=== PATIENT | female | born 1940 | race Caucasian/White ===

== ENCOUNTER 2018-09-03 05:31 | Inpatient (IN) | payer OTHER, MEDICARE ==
[2018-08-26 09:17] LABS: HEMOGLOBIN 13.7 gm/dL (12.0-15.0); MCHC 33.3 g/dL (28.0-37.0); MCV 87.3 fL (80.0-100.0); RBC 4.7 mil/uL (4.20-5.00); RDW 14.2 % (10.5-14.5); URINE BILIRUBIN NEGATIVE (Negative); URINE BLOOD NEGATIVE (Negative); URINE CLARITY CLOUDY; URINE COLOR YELLOW; URINE GLUCOSE-RANDOM* NEGATIVE (Negative); URINE KETONES NEGATIVE (Negative); URINE NITRITE-REFLEX NEGATIVE (Negative); URINE PROTEIN (DIPSTICK) NEGATIVE (Negative); URINE SPECIFIC GRAVITY 1.015 (1.005-1.035); URINE UROBILINOGEN 0.2 E.U./dl (0.2-1.0); WBC 6.6 thou/uL (4.0-11.0)
[2018-08-26 09:26] LABS: URINE LEUKOCYTES-REFLEX 3+ (Negative)
[2018-08-26 09:27] LABS: ALBUMIN 3.9 g/dL (3.4-5.0); CALCIUM 9.7 mg/dL (8.5-10.1); CREATININE 0.8 mg/dL (0.6-1.0); POTASSIUM 4.1 mmol/L (3.5-5.1)
[2018-08-26 09:30] LABS: CASTS None Seen /LPF (None Seen); CRYSTALS None Seen /LPF (None Seen); PROTIME 9.8 Seconds (9.3-11.4); SQUAMOUS 0-3 Few /LPF (0-3); URINE WBC-REFLEX >25 Many /HPF (0-5)
[2018-08-26 09:31] LABS: URINE RBC None Seen /HPF (0-2)
--- NOTE | 2018-08-27 13:55 | EKG ---
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: [facility] : 1940 Requested By: Juan Josue Order Number: [id number] MD: Eze Carreno Measurements Intervals [place] Rate: 61 P: 23 ND: 161 QRS: -19 QRSD: 83 T: 40 QT: 393 QTc: 396 Interpretive Statements Sinus rhythm Borderline left axis deviation No previous ECG available for comparison Electronically Signed On 08-27-2018 13:55:32 CDT by Eze Carreno [email or web address] ��������������������������������������������� <ELECTRONICALLY SIGNED> ���������������������������������������� By: Eze Carreno MD ��������������������������������������������� 08/27/18 1355 0916 5 Eze Carreno MD /MEHUL
[~2018-09-03] VITALS: Ht 157.5 cm; Wt 73.0 kg
[2018-09-03] VITALS (8 sets, daily range): BP systolic 96–161; BP diastolic 51–75
[~2018-09-03 05:31] MED LIST: APAP500 PO; ASPIRIN81 M2 PO; CALCIUM WITH M1 EACH PO; CELEBREX 200 M200 MG PO; CHLORTHALIDONE25 MG PO; COLACE100 MG PO; COZAAR100 MG PO; DIFLUCAN200 MG; IBUPROFEN 600600 M1 PO; LEVOTHYROXIN0.025 MG PO; LEVOTHYROXIN0.075 MG PO; MEDROL4 MG; NORCO 5-325 TA1 EACH PO; NORVASC5 M1 PO; PERCOCET PO; POTASSIUM20 PO; PREDNISONE 10 M10 MG; ROBAXIN 750 MG750 M1 PO; STOOL SOFTENER100 M1 PO; SYNTHROID75 MCG PO; TRAMADOL 50 MG50 MG PO; TURMERIC500 M2 PO; TYLENOL EXTRA500 MG PO; TYLENOL325 MG PO; VITAMIN D2000 UNI1 PO; VITAMINC500 PO; ZOFRAN ODT8 MG PO
[2018-09-03 07:33] LABS: URINE BILIRUBIN NEGATIVE (Negative); URINE BLOOD NEGATIVE (Negative); URINE CLARITY CLEAR; URINE COLOR YELLOW; URINE GLUCOSE-RANDOM* NEGATIVE (Negative); URINE KETONES NEGATIVE (Negative); URINE NITRITE-REFLEX NEGATIVE (Negative); URINE PROTEIN (DIPSTICK) NEGATIVE (Negative); URINE UROBILINOGEN 0.2 E.U./dl (0.2-1.0)
[2018-09-03 07:34] LABS: URINE LEUKOCYTES-REFLEX 2+ (Negative)
[2018-09-03 07:47] LABS: BACTERIA-REFLEX 1-9 Few /HPF (None Seen); CASTS None Seen /LPF (None Seen); CRYSTALS None Seen /LPF (None Seen); SQUAMOUS 4-10 Moderate /LPF (0-3); URINE RBC None Seen /HPF (0-2); URINE WBC-REFLEX 6-15 Few /HPF (0-5)
--- NOTE | 2018-09-03 15:52 | NUR ---
PT ADMITTED RELATED TO RIGHT TKR. CM REVIEWED CHART AND SPOKE WITH CARE TEAM. CM MET WITH PT AT BEDSIDE THIS DAY. PT IS A&O X4. CM ROLE INTRODUCED. PT INDICATED SHE LIVES ALONE IN A HOUSE WITH 2 STEPS TO ENTER AND NO STEPS INSIDE. PT INDICATED SHE HAD USED A FWW AT NIGHT TO ASSIST WITH MOBILITY. 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 PT INDICATED THAT SHE THINKS THAT SHE MIGHT BE ESTABLISHED WITH [facility] AND THEN OP PT UPON DC. PT INDICATED SHE ANTICPATES DISCHARGING HOME SUNDAY MORNING. CM TO FOLLOW INDICATED WITH DC PLANNING.
--- NOTE | 2018-09-03 17:08 | NUR ---
ASSUMED CARE AT 1300, SHIFT ASSESSMENT DONE, MEDS GIVEN, VSS. ON CAPNOGRAPHY MONITOR, RESPIRATIONS DROPPING BELOW [address] TIME[address] ROJAS INDICATED TO OFFER 1 ROUND OF BREATHING TREATMENT AND IF THAT DOES NOT HELP, CALL THE HOSPITALIST. REPORTED PAIN, PRN PAIN MEDS GIVEN. BILATERAL SCDs/ MICHAELA HOSE IN PLACE. ON REGUALR DIET, TOLERATING WELL. WILL CONTINUE TO ASSESS AND ASSIST WITH ADLs NEEDED.
--- NOTE | 2018-09-03 18:45 | NUR ---
PATIENT'S RESPIRATION HAS BEEN BETWEEN 8-10, BP 100/51, SATURATION IS FINE. READJUSTED THE PULSE-OX PROBE. ASKED FOR PAIN MED, BECAUASE OF LOW BP, IV MEDS HELD AT THIS TIME. GAVE TYLENOL, RATING PAIN AT 6/10 WILL CONTINUE TO ASSESS AND ASSIST WITH ADLs NEEDED.
[2018-09-04 00:35] VITALS: BP 92/53
[2018-09-04 05:18] VITALS: BP 92/51
[2018-09-04 05:32] LABS: HEMATOCRIT 32.1 % (37.0-47.0); HEMOGLOBIN 10.6 gm/dL (12.0-15.0); MCHC 33.1 g/dL (28.0-37.0); MCV 87.4 fL (80.0-100.0); RBC 3.67 mil/uL (4.20-5.00); RDW 14.3 % (10.5-14.5); WBC 17.9 thou/uL (4.0-11.0)
[2018-09-04 05:42] LABS: CALCIUM 8.1 mg/dL (8.5-10.1); CREATININE 0.8 mg/dL (0.6-1.0); POTASSIUM 3.8 mmol/L (3.5-5.1)
--- NOTE | 2018-09-04 06:23 | O ---
[address] [address] OPERATIVE REPORT Name: CLARE OLIVO Room #: 418-P [facility] IN M.R.#: [id number] Admission: 09/03/18 ������������������ Attend Phys: Juan Josue MD Discharge: ������������������ Date of : 42 Report #: [id number] THIS REPORT FOR: //name// CC: Jaya Josue DATE OF SERVICE: 09/03/2018 SERVICE: Orthopedics. FACILITY: [facility]. SURGEON: Juan Josue M.D. SHEET ROCK FINISHER: Kimberley Sepulveda NP. INDICATION FOR SHEET ROCK FINISHER: Extremity positioning, retracting, assisted with the reconstruction. PREOPERATIVE DIAGNOSES: 1. End-stage valgus type osteoarthritis, right knee. 2. Right knee pain. POSTOPERATIVE DIAGNOSES: 1. End-stage valgus type osteoarthritis, right knee. 2. Right knee pain. PROCEDURES: 1. Right total knee arthroplasty. 2. Computer navigated robotic assistance. ANESTHESIA: General with regional. COMPLICATIONS: None. DRAINS: None. ESTIMATED BLOOD LOSS: 50 mL. FINDINGS: Caldera and Nephew Legion size 5 narrow femur with size 3 tibia and 29 mm patellar inset button with an 11 mm constrained poly insert. HISTORY AND INDICATIONS: The patient is a 78-year-old female with history of advanced right knee osteoarthritis that had failed all conservative measures including rest, activity modifications, physical therapy, oral medications and injected medications. She had severe osteoarthritis with valgus type deformity [address] [address] OPERATIVE REPORT Name: CLARE OLIVO Room #: 418-P [facility] IN [facility]#: [id number] Admission: 09/03/18 ������������������ Attend Phys: Juan Josue MD Discharge: ������������������ Date of : 41 Report #: [id number] with [id number] changes, sclerosis and osteophytes. She was then indicated for surgical management after she wished to proceed with arthroplasty. Risks, benefits, alternatives and indication of surgery discussed with her in detail. Risks include but not limited to pain, bleeding, infection, injury to nerves or blood vessels, persistent pain despite surgical intervention, fracture, stiffness, need for further surgery as well as complications related to anesthesia such as stroke, heart attack, pulmonary complications, thromboembolic disease and . Despite these risks and wished to proceed. PROCEDURE IN DETAIL: After her right lower extremity was correctly identified, the patient underwent placement of a single shot regional nerve block. She was then taken to the Operating Room where general anesthesia was induced without complication. She was padded appropriately. Prophylactic antibiotics were administered at appropriate time. Tourniquet was applied to the right leg. Right lower extremity was then prepped and draped in standard sterile fashion. Time-out procedure was performed. Esmarch was used to exsanguinate. Tourniquet was inflated to 250 mmHg. Total tourniquet time was 97 minutes. A standard anterior approach was made to the knee with full thickness skin flaps developed and then a medial parapatellar arthrotomy was developed. The osteophytes were removed. The retropatellar fat pad was removed and then the menisci were excised. She had minimal lateral meniscal tissue due to degeneration. The cruciates were excised after the osteophytes were removed from the notch with an osteotome allowing access to the notch. The Caldera and Nephew Navio system was then used to map out the anatomy and established the patient's baseline range of motion, alignment and flexion and extension gap balancing. She has significant amount of valgus, baseline of approximately 60 degrees with flexion contracture as well as some ligamentous pathology associated. We plan for appropriate corrections with a goal of realigning her extremity and restoring full range of motion built into the reconstruction plan. The emmett was then used to prepare the bone starting with the femur first and then the 4-in-1 cutting block was used to prepare the femur and tibia was then prepared using navigation and then a tibial cut was made after exposure had been completed. The trials were placed and the alignment was appropriate. We did add an additional degree of external rotation in order to accommodate her patellar tracking as well as her flexion valgus deformity. With the trials in place and prepared the notch and then prepared the patella because of the severity of her deformity. I did trial twice first and finding that there was some additional osteophytes posteriorly and extending into the notch that we were interfering with the assessment. I removed the trials, resected the additional osteophytes, replaced the trials and assessed the balancing. After final position was found to be appropriate, the trials were removed. Again, the trials were removed after removal of the posterior osteophytes. The first 30 mL of a total of 120 mL of local anesthetic cocktail was infiltrated into the soft tissue and capsule posteriorly for postoperative analgesia and then the bone was prepared for cementation. The tibial component, which had been fixed based on the trial position was then placed and cemented into position. The femoral component was cemented. The [address] [address] OPERATIVE REPORT Name: CLARE OLIVO Room #: 418-P [facility] IN [place]#: [id number] Admission: 09/03/18 ������������������ Attend Phys: Juan Josue MD Discharge: ������������������ Date of : 42 Report #: [id number] excess cement was resected and the knee was placed into extension with the 11 mm constrained liner and then, the patellar component was cemented into place in the appropriate position. The cement was allowed to cure. Tourniquet was let down. Hemostasis was achieved. The remaining 90 mL of local anesthetic was then infiltrated into the soft tissues to complete the periarticular injection and then the knee was assessed for stability and we selected the 11 mm constrained liner to provide a good stability. The arthrotomy was then closed with 0 Vicryl suture in [id number]-[id number] fashion and the skin layer was then closed with 2-0 Vicryl followed by running subcuticular 3-0 Monocryl and Dermabond. A negative pressure dressing was then applied followed by compression stocking and a PolarCare device. The patient was awakened from anesthesia and taken to Recovery Room in stable condition. There were no complications and all counts were recorded as correct. ��������������������������������������������� <ELECTRONICALLY SIGNED> ���������������������������������������� By: Juan Josue MD ��������������������������������������������� 09/04/18 0623 2256 [id number] Juan Josue MD /nt
--- NOTE | 2018-09-04 07:28 | NUR ---
ASSUMED PT CARE 1899. PT ALERT AND ORIENTED. BLOOD PRESSURES CONSISTENTLY LOW, PT COMPLAINS OF DIZZINESS AND LIGHTHEDEDNESS. PT UP TO BED SIDFE COMMODE X1, DIZZY MALIK AND VOMIT X1. PT REPORTS PAIN, SEE EMAR. RESPIRATIONS OKAY, O2 SAT GOOD. PT UNABLE TO URINATE AT 0000. BLADDERSCAN PERFORMED AND WARE INSERTED. REPORT GIVEN TO AM NURSE.
--- NOTE | 2018-09-04 13:45 | NUR ---
DCP WAS NOTIFIED THIS AM FROM MODESTA AT [facility] THAT DR. ROJAS'S OFFICE ARRANGED FOR PT. TO HAVE HH AT DISCHARGE. MODESTA MET WITH PT. THIS AM AND DID BEDSIDE EVAL. ADOLFO FAXED REFERRAL TO [facility] AND WAS RECEIVED. ANTICIPATE DC SUNDAY. DCP TO FOLLOW.
--- NOTE | 2018-09-04 17:05 | NUR ---
Assumed pt care at 7am.Pt in and out of bed for activitity with therapy. Assessment completed.vss. but low bp noted.Bp meds on hold till better reading.Pt tolerated meds and diet.Dr Hoffman here early this shift,order noted.Pt wanted to know if bp reading was better than earlier .Bp was 98/61 with pulse 55.Gay cath dc'd per protocol.Report off to [facility] in senior suites.Pt left per wc accompanied by paper machine tender at 1710.
[2018-09-04 17:30] VITALS: BP 96/56
--- NOTE | 2018-09-04 17:42 | NUR ---
PATIENT TRANSFERRED TO SICU ROOM #223 FROM ROOM #418. PATIENT SETTLED AND VS TAKEN.
[2018-09-04 21:35] VITALS: BP 144/70
--- NOTE | 2018-09-05 05:45 | NUR ---
PATIENT ALERT AND ORIENTED X4. DRESSING ON R KNEE D/T. C/O PAIN IN THIGH AREA ABOVE KNEE. POLAR ICE ON KNEE. HAD NOT VOIDED BY 0120. CATH PLACED 0145 WITH NO TROUBLE. PATIENT TOLERATED WELL. RECIEVED AROUND 800ML IN THE FIRST 15 MIN. C/O NAUSEA. MED GIVEN. C/O NAUSEA ASAIN, WITH VOMITING. UP TO BATHROOM SEVERAL TIMES. C/O "FEELING FAINT. VS TAKEN AND THE WERE WNL. SLEPT VERY LITTLE THIS SHIFT.
[2018-09-05 06:19] LABS: HEMATOCRIT 32.7 % (37.0-47.0); HEMOGLOBIN 10.7 gm/dL (12.0-15.0); MCH 28.6 pg (26.0-34.0); MCHC 32.7 g/dL (28.0-37.0); MCV 87.6 fL (80.0-100.0); RBC 3.73 mil/uL (4.20-5.00); RDW 14.1 % (10.5-14.5); WBC 11.1 thou/uL (4.0-11.0)
[2018-09-05 08:27] VITALS: BP 107/62
--- NOTE | 2018-09-05 10:50 | NUR ---
SW reviewed chart and spoke with nursing. Pt was transferred to Senior Suites from 4W and is progressing towards goals for discharge. Discharge home with HH is anticipated for tomorrow. nurse discharge planner to send clinical info to [facility] for review. [facility] is following to assist as needed with discharge planning.
--- NOTE | 2018-09-05 11:15 | NUR ---
ASSUMED CARE OF PATIENT THIS MORNING. PATIENT IS A&OX4. DAY 2 POST OP R. TKA, SHE HAS A LAINE DRESSING ON THE SITE AND IS WEARING BILATERAL MICHAELA HOSE AND HAS A POLAR PACK APPLIED TO THE SITE. SHE TOLERATED HER MORNING MEDICATIONS. SHE WILL NEED A NEW IV. SHE HAS A LIMB ALERT ON THE R. WRIST DUE TO LUMPECTOMY AND RADIATION SEED IMPLANTS BACK IN 1990. HER LAST BOWEL MOVEMENT WAS 09/03/18 PRIOR TO HER SURGERY. PATIENT IS CURRENTLY LYING IN BED WITH CALL LIGHT WITHIN REACH. SHE CALLS OUT APPROPRIATELY FOR ASSISTANCE.
--- NOTE | 2018-09-05 13:01 | NUR ---
DISCHARGE PLANNING. ANTICIPATED DISCHARGE TOMORROW. PATIENT TO DISCHARGE HOME WITH HOME HEALTH SERVICES. REQUESTING REFERRAL FAXED TO [facility]. REFERRAL FAXED TO [facility]. CALL PLACED TO [facility] TO NOTIFY OF REFERRAL AND PATIENTS ANTICIPATED DISCHARGE DATE. [facility] OUT OF THE OFFICE. MESSAGE LEFT FOR [facility] WITH DP CONTACT INFORMATION. UNIT CM/SW AWARE. FOLLOWING TO ASSIST.
[2018-09-05 20:04] VITALS: BP 110/60
--- NOTE | 2018-09-06 04:33 | NUR ---
PATIENT ALERT AND ORIENTED X4. [employer] PATENT YELLOW HAMIDA. C/O PAIN X2, MED GIVEN WITH FAIR RELIEF. LAINE DRESSING ON R KNEE WRAPPED WITH TORRIE INTACT. HAS POLAR ICE ON KNEE. PASSING GAS BUT NO BM YET. SLEPT MOST OF THE NIGHT.
[2018-09-06 07:48] LABS: HEMATOCRIT 30.3 % (37.0-47.0); MCHC 33.1 g/dL (28.0-37.0); MCV 87.6 fL (80.0-100.0); RBC 3.45 mil/uL (4.20-5.00); RDW 14.3 % (10.5-14.5); WBC 9.8 thou/uL (4.0-11.0)
[2018-09-06 10:00] VITALS: BP 99/58
[2018-09-06 10:05] VITALS: BP 110/60
[2018-09-06 10:16] VITALS: BP 99/58
--- NOTE | 2018-09-06 11:05 | NUR ---
ASSUMED PATIENT AND CARES AT 0715, PATIENT WOKE IN BED WITH HOB ELEVATED, PATIENT RECEIVING ZOFRAN PUSH R/T C/O NAUSEA, PATIENT BELIEVES NAUSEA IS R/T TAKING PAIN PILL ON EMPTY STOMACH, LUE SALINE LOCK INTACT AND PATENT, MICHAELA HOSE AND SCDS TO BLE, LAINE DRESSING TO RIGHT KNEE WITH TORRIE WRAP, FALL PRECAUTIONS IN PLACE, WALKER AND BSC NEARBY, PERSONAL BELONGINGS AND CALL LIGHT IN REACH, WILL CONTINUE TO MONITOR
--- NOTE | 2018-09-06 12:06 | NUR ---
PATIENT DISCHARGED HOME WITH HOME HEALTH, PATIENT FRIEND HERE TO TRANSPORT PATIENT AND BELONGINGS HOME, NURSE AND PATIENT REVIEWED DISCHARGE INSTRUCTIONS AND MEDICATIONS, PATIENT EXPRESSED UNDERSTANDING, PATIENT AWARE OF FOLLOW UP ORTHOPEDIC APPOINTMENT, LUE SALINE LOCK REMOVED AND REPLACED WITH GAUZE AND TAPE, WARE CATH REMOVED AROUND 1000 AND PATIENT HAS VOIDED, TRANSPORT REQUEST TO TAKE PATIENT TO ENTRANCE OF BUILDING D
--- NOTE | 2018-09-06 12:07 | NUR ---
DISCHARGE NOTE: SW reviewed chart and spoke with nursing and attending physician. Pt is medically stable for discharge home today with HH services. senior materials planner faxed discharge orders/summary to [facility]. Contact info for [facility] placed in pt's discharge summary. Pt's family to provide transportation home. No additional SW needs identified at this time, but is available to assist should needs arise.
--- NOTE | 2018-09-06 12:52 | NUR ---
I AGREE WITH NURSING ASSESSMENT DONE BY MARLENY/RADHA.
== END 2018-09-06 12:27 | disposition home health service (06) | DRG 470 ==
LOC: 4E 05:31 → TBA 05:31 → PRE 05:58 → EDSTATUS 07:35 → OR 07:35 → PRE 07:36 → 4E 14:15 → ENTRNSPT 09-04 16:42 → SICU 09-04 17:08 → ENTRNSPT 09-06 12:15 → EDTRNSPTSTS 09-06 12:16 → SICU 09-06 12:27
PROVIDERS: ADMIT Orthopaedic Surgery Sports Medicine
DX: M17.11 Unilateral primary osteoarthritis, right knee (principal); I10 Essential (primary) hypertension; E03.9 Hypothyroidism, unspecified; K21.9 Gastro-esophageal reflux disease without esophagitis; E66.9 Obesity, unspecified; R33.9 Retention of urine, unspecified; M21.061 Valgus deformity, not elsewhere classified, right knee; Z88.8 Allergy status to other drugs, medicaments and biological substances; Z82.49 Family history of ischemic heart disease and other diseases of the circulatory system; Z68.29 Body mass index [BMI] 29.0-29.9, adult; Z85.3 Personal history of malignant neoplasm of breast
CPT/HCPCS: 10783; 15002; 50010; 50101; 50415; 50954; 51130; 51225; 51320; 52001; 53000; 53078; 53364; 54118; 56527; 56528; 57095; 57103; 57110; 57127; 57180; 62110; 62900; 70005

== ENCOUNTER → 2018-09-18 | Outpatient (CLI) | payer OTHER, MEDICARE | LOC: ULTRA 14:48 | DX: M25.461 Effusion, right knee (principal); Z96.651 Presence of right artificial knee joint ==

== ENCOUNTER 2018-10-30 11:26 | Inpatient (IN) | payer OTHER, MEDICARE ==
[~2018-10-30] VITALS: Ht 157.5 cm; Wt 81.5 kg
[2018-10-30 11:32] VITALS: BP 160/80
[2018-10-30 13:35] VITALS: BP 163/82
[2018-10-30 13:38] LABS: HEMATOCRIT 40.3 % (37.0-47.0); HEMOGLOBIN 12.8 gm/dL (12.0-15.0); MCHC 31.9 g/dL (28.0-37.0); MCV 84.5 fL (80.0-100.0); RBC 4.77 mil/uL (4.20-5.00); RDW 15.9 % (10.5-14.5); WBC 12.4 thou/uL (4.0-11.0)
[2018-10-30 13:46] LABS: CALCIUM 9.5 mg/dL (8.5-10.1); CREATININE 0.7 mg/dL (0.6-1.0); POTASSIUM 3.4 mmol/L (3.5-5.1)
[2018-10-31 00:42] VITALS: BP 101/59
--- NOTE | 2018-10-31 03:24 | NUR ---
PT CAME UP FROM PACU. S/P R FEMUR FX REPAIR WITH /RONI. AXOX4. DRESSING X 2 CDI. C/O SEVERE PAIN. MORPHINE ADMIN. IVF PER . [facility]ATIVES SORTED OUT WITH LYNDSEY REDDY CABLE FERRY OPERATOR FOR . AROUND 1230, PT REQUESTED MORPHINE, BP LOW. 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 WARE INTACT AND DRAINING GOOD. NO S/SA ACUTE DISTRESS NOTED OR REPORTED AT THIS TIME. WILL CONT TO MONITOR FOR ANY CHANGES IN CONDITION.
[2018-10-31 04:32] VITALS: BP 103/47; BP 103/473
[2018-10-31 05:46] LABS: HEMATOCRIT 30.2 % (37.0-47.0); MCH 27.4 pg (26.0-34.0); MCHC 32.3 g/dL (28.0-37.0); MCV 84.8 fL (80.0-100.0); RBC 3.56 mil/uL (4.20-5.00); RDW 15.6 % (10.5-14.5); WBC 13.1 thou/uL (4.0-11.0)
[2018-10-31 05:53] LABS: CALCIUM 8.2 mg/dL (8.5-10.1); CREATININE 0.8 mg/dL (0.6-1.0); POTASSIUM 3.8 mmol/L (3.5-5.1)
[2018-10-31 05:59] LABS: HEMOGLOBIN 9.8 gm/dL (12.0-15.0)
[2018-10-31 07:43] VITALS: BP 102/54
--- NOTE | 2018-10-31 14:08 | NUR ---
PT ADMITTED RELATED TO R FEMUR FX S/P IM NAILING. CM REVIEWED CHART AND SPOKE WITH CARE TEAM. CM MET WITH PT AT BEDSIDE THIS DAY. PT IS A&O X4. CM ROLE INTRODCUED. PT INDICATED SHE LIVES ALONE IN A HOUSE WITH 2 STEPS TO ENTER AND NO STEPS INSIDE. PT INDICATED SHE HAD USED A FWW TO GET AROUND LEATHER PRODUCTION ARTISAN. PT INDICATED SHE HAD [facility] UPON LAST DC AND THAT SHE HAD SINCE TRANSITIONED TO OUT PATIENT REHAB. PT INDCIATED SHE WAS REEPTIVE TO POST ACUTE CARE STAY IF RECOMMENDED UPON DC. PT IS AWARE OF ACUTE AND SKILLED REHAB OPTIONS. CM TO FOLLOW INDICATED WITH DC PLANNING.
[2018-10-31 14:44] VITALS: BP 97/45
--- NOTE | 2018-10-31 15:10 | NUR ---
ASSUMED CARE OF PATIENT AT 0715, PATIENT ALERT AND ORIENTED X 4. PATIENT C/O MILD PAIN W/O ACTIVITY, 06/30. PATIENT ON BEDREST, POST OP DAY 1, PHYSICAL THERAPY WILL WORK WITH PATIENT THIS AM. PATIENT HAD SURGERY RIGHT FEMUR REPAIRED, DRESSINGS TO RIGHT HIP/LOWER LEG IN PLACE, C/D/I. ICE APPLIED TO AREA FOR COMFORT, RIGHT LEG SWOLLEN. PATIENT RECEIVED HYDROCODONE 5/325MG 1 TABLET THIS AM PRIOR TO PHYSICAL THERAPY, AND AGAIN THIS AFTERNOON PRIOR TO PHYSICAL THERAPY/HIEU WORKED WITH PATIENT UP TO CHAIR TODAY. PATIENT HAS LEFT AC IV IN PLACE WITH D5 1/2 NS AT 100CC/HR, DR JULIO HERE THIS AND D/C IV FLUIDS. PATIENT HAS WARE IN PLACE DUE TO RETENTION AFTER SURGERY. O2 AT 2 LITERS/NC IN PLACE. WILL CONTINUE TO MONITOR.
--- NOTE | 2018-10-31 15:14 | O ---
[facility] [place] [address] OPERATIVE REPORT Name: CLARE OLIVO Room #: 450-P ADM IN M.R.#: [id number] Admission: 10/30/18 ������������������ Attend Phys: Nigel Pena MD Discharge: ������������������ Date of : 41 Report #: [id number] THIS REPORT FOR: //name// CC: Nigel Sykes DATE OF SERVICE: 10/30/2018 SERVICE: Orthopedics. FACILITY: [place]. SURGEON: Juan Josue MD SECOND SURGEON: Taqueria Mcdaniel MD INDICATION FOR SECOND SURGEON: Assistance with regards to maintenance of the reduction alignment and instrumentation of the fracture. PREOPERATIVE DIAGNOSIS: Right femur fracture. POSTOPERATIVE DIAGNOSIS: Right femur fracture. PROCEDURE: Closed reduction intramedullary nailing, right femoral shaft fracture. COMPLICATIONS: None. DRAINS: None. SPECIMENS: None. ANESTHESIA: General with LMA. FINDINGS: 1. Caldera and Nephew trochanteric antegrade nail with cephalomedullary proximal locking screws and three distal locking screws. 2. Sizin mm x 38 cm nail with 85 x 80 mm compression screws proximally and 40, 42.5, and 45 mm distal locking screws. 3. Anatomic reduction stable after internal fixation. HISTORY: The patient is a 78-year-old young lady who is approximately 2 months status post right total knee arthroplasty. At her 6-week followup visit, she was doing quite well and had excellent range of motion and healed her wounds well. Unfortunately, over the past week, she was having progressively worsening pain and felt a pop and had deformity of the leg earlier today. [facility] [address] [place] [address] OPERATIVE REPORT Name: CLARE OLIVO Room #: 450-P ADM IN M.R.#: [id number] Admission: 10/30/18 ������������������ Attend Phys: Nigel Pena MD Discharge: ������������������ Date of : 41 Report #: [id number] States that she planted and pivoted and had the injury. She sustained a fracture through a guide pin hole in the femur. She was admitted to the hospital where she was indicated for surgical treatment. We reviewed the x-rays and felt that IM nail fixation was most optimal due to the fracture configuration and she was in agreement. Risks, benefits, alternatives, and indication for surgery were reviewed with her in detail preoperatively. PROCEDURE IN DETAIL: After the right lower extremity was correctly identified in preoperative holding area as the operative extremity, the patient was taken to the operating room where general anesthesia with LMA was induced without complication. She was then transferred to the operating table. Padded appropriately. Prophylactic antibiotics were administered at appropriate time. Right leg had been placed in the traction apparatus and the C-arm was used to assess the reduction. She had a near anatomic alignment, but had some translation and some apex posterior angulation on the lateral view. The right leg was prepped and draped in standard sterile fashion. Time-out procedure was performed. Using C-arm guidance, an incision was made proximal to the greater trochanter. Dissection was taken down through the trochanter. Then, the guide pin was used to obtain access to the proximal femur. The guide pin was then passed across the fracture and with the fracture held reduced with the reduction technique by the second surgeon. The reamers were then passed. They were chatter encountered at 9 mm and we were able to successfully ream up to 10.5 mm, indicating that this was a good fit for a 9 mm nail which measured to a 38 cm length. We placed the nail in typical fashion while maintaining reduction on multiple planes using x-ray as well on multiple planes, focusing primarily on apex posterior angulation. We placed the nail across the fracture and it was still in some degree of angulation, so tacked the nail up thumb, adjusted the reduction and then advanced the nail distally. It was in better alignment, but there was some distraction at the fracture site by approximately 2 mm to 3 mm, so we elected to place the distal interlocking screw first and then established appropriate rotation of the nail proximally on the lateral view at the hip and then went back down to the level of the fracture. At this point with interlocking screw placed in the nail distally, the nail was backslapped and this provided compression across the fracture, which allowed the fracture to [place] into its anatomic position and maintained in anatomic alignment. A cortical contact for the remainder of the case after the second distal interlocking screw was placed, which was placed in the dynamic position should there be issues in the future with healing. The third distal interlocking screw on the oblique plane was then placed using appropriate hoonah technique as well and then the reduction crush device was removed and the fracture maintained in anatomic position. X-ray was then moved proximally where the 2 proximal locking screws were placed in a typical fashion and the final x-rays were taken. The wounds were copiously irrigated. The fascial layer was closed with 0 Vicryl suture. Skin was closed with 2-0 Vicryl, followed by skin silke. Sterile dressings [facility] [address] [place] [address] OPERATIVE REPORT Name: CLARE OLIVO Room #: 450-P [facility] IN ..#: [id number] Admission: 10/30/18 ������������������ Attend Phys: Nigel Pena MD Discharge: ������������������ Date of : 42 Report #: [id number] were applied. The patient was awakened from anesthesia and taken to recovery room in stable condition. There were no complications and all counts were recorded as correct. ESTIMATED BLOOD LOSS: 200 mL. ��������������������������������������������� <ELECTRONICALLY SIGNED> ���������������������������������������� By: Juan Josue MD ��������������������������������������������� 10/31/18 1514 0733 [id number] Juan Josue MD /nt
[2018-10-31 19:05] VITALS: BP 107/51
[2018-10-31 20:30] VITALS: BP 123/64
--- NOTE | 2018-11-01 01:47 | NUR ---
patient aox4 makes needs known.pain controlled this shift. patient repositioned q 2 hours. patient encouraged fluids. patient rle dressing are c/d/i. patient c/o itching patient reeducated about healing process.patient in bed asleep at this time breathing regular and unlaboured.
[2018-11-01 04:08] VITALS: BP 122/85
[2018-11-01 05:49] LABS: HEMATOCRIT 27.4 % (37.0-47.0); MCH 27.7 pg (26.0-34.0); MCHC 32.8 g/dL (28.0-37.0); MCV 84.3 fL (80.0-100.0); RBC 3.25 mil/uL (4.20-5.00); RDW 15.6 % (10.5-14.5); WBC 8.3 thou/uL (4.0-11.0)
[2018-11-01 07:21] VITALS: BP 113/59
--- NOTE | 2018-11-01 13:51 | NUR ---
DICHARGE PLANNING. POST ACUTE RECOMMENDED AT DISCHARGE. REFERRAL FAXED TO [facility], ADMISSIONS FOR [facility], PER PATIENT REQUEST. ANTICIPATED DISCHARGE IS PLANNED FOR TOMORROW. CALL PLACED TO [facility] TO NOTIFY OF PATIENT REFERRAL AND PLAN OF DISCHARGE FOR TOMORROW. SUHAIL/[facility] TO REVIEW REFERRL AND CONTACT CM ONCE REVIEW COMPLETED. FOLLOWING TO ASSIST.
[2018-11-01 16:09] VITALS: BP 114/62
--- NOTE | 2018-11-01 16:59 | NUR ---
PT IS TO DISCHARGE TO [facility] Sunday[facility]02/18. PT IS TO BE PICKED UP VIA [facility] AT 1300. ORDERS TO BE FAXED TO . CHART COPY WILL NEED TO BE MADE. NO OTHER CM INTERVENTION INDICATED. CASE CLSOED.
[2018-11-01 19:35] VITALS: BP 127/70
[2018-11-01 21:59] VITALS: BP 152/92
[2018-11-02 03:40] VITALS: BP 137/72
[2018-11-02 05:09] LABS: HEMOGLOBIN 9.3 gm/dL (12.0-15.0); MCH 27.1 pg (26.0-34.0); MCHC 32.1 g/dL (28.0-37.0); MCV 84.5 fL (80.0-100.0); RBC 3.44 mil/uL (4.20-5.00); RDW 15.4 % (10.5-14.5); WBC 8.4 thou/uL (4.0-11.0)
--- NOTE | 2018-11-02 07:39 | NUR ---
Assumed care at 1845. Pt resting in bed. AOX4. VSS. Gave tylenol once for increased temp. She had a BM this morning after suppository. Gay intact. Reinforced dressing on right hip after 3-4cm saturation. Turn Q2. No identified needs at the moment. Will continue to monitor.
[2018-11-02 07:55] VITALS: BP 109/60
[2018-11-02] MEDS ORDERED: FLOMAX0.4 MG PO (10:09)
[2018-11-02] MEDS ORDERED: URECHOLINE 25 M25 MG PO (10:09)
[2018-11-02] MEDS ORDERED: XARELTO10 MG PO (10:10)
--- NOTE | 2018-11-02 14:16 | NUR ---
PT VITAL SIGNS STABLE THROUGHOUT SHIFT. PT C/O PAIN AND N/V THROUGHOUT SHIFT. PT LOST IV ACCESS THIS A.M., INSISTED ON ANOTHER IV FOR MORPHINE SHORTLY BEFORE SHE LEFT. PT SEEMED UNABLE TO TOLERATE PO PAIN MED THIS MORNING, HOWEVER YESTERDAY SHE HAD SAME ISSUE AND IT RESOLVED LATER IN THE DAY. PT DISCHARGED TO REHAB, REPORT CALLED TO [facility]. PT LEFT UNIT VIA [facility], SON ACCOMPANIED. NOTIFIED DR. ROJAS'S UNDRAPED ARTIST MODEL OF PAIN AND N/V. PT HAD WARE IN PLACE UPON DC PER PHYSICIAN ORDERS.
== END 2018-11-02 14:14 | DRG 482 ==
LOC: ER 11:26 → TBA 13:11 → EROBS 13:11 → 4W 13:11 → TBA 14:18 → 4W 20:43
PROVIDERS: Orthopaedic Surgery Sports Medicine; ADMIT Hospitalist
PROC: 0QSB36Z Reposition Right Lower Femur with Intramedullary Internal Fixation Device, Percutaneous Approach (ICD-10-PCS; principal; 2018-10-30)
DX: S72.301A Unspecified fracture of shaft of right femur, initial encounter for closed fracture (principal); I10 Essential (primary) hypertension; E03.9 Hypothyroidism, unspecified; M19.90 Unspecified osteoarthritis, unspecified site; I48.91 Unspecified atrial fibrillation; Z96.651 Presence of right artificial knee joint; E66.9 Obesity, unspecified; Z60.2 Problems related to living alone; K59.00 Constipation, unspecified; E87.6 Hypokalemia; E55.9 Vitamin D deficiency, unspecified; D50.0 Iron deficiency anemia secondary to blood loss (chronic); Z85.3 Personal history of malignant neoplasm of breast; Z90.710 Acquired absence of both cervix and uterus; Z79.899 Other long term (current) drug therapy; Z68.32 Body mass index [BMI] 32.0-32.9, adult; Z47.89 Encounter for other orthopedic aftercare; Z82.49 Family history of ischemic heart disease and other diseases of the circulatory system; Z88.8 Allergy status to other drugs, medicaments and biological substances
CPT/HCPCS: 10047; 50010; 50101; 50386; 51412; 51538; 52304; 55445; 56524; 57092; 62110; 62900; 70005